=== PATIENT | male | born 1980 | race Caucasian/White ===

== ENCOUNTER 2018-10-04 05:27 | Inpatient (IN) ==
--- NOTE | 2018-09-27 08:33 | EKG Report ---
Test Performed on : 09/27/2018 08:22:26 AM Test Reason : PAT Blood Pressure : / mmHG Vent. Rate : 062 BPM Atrial Rate : 062 BPM P-R Int : 172 ms QRS Dur : 096 ms QT Int : 368 ms P-R-T Axes : 011 029 038 degrees QTc Int : 373 ms Normal sinus rhythm. with sinus arrhythmia. Normal ECG No previous ECGs available Confirmed by Renard VAZQUEZ, Atul Wallace ([id number]) on 09/28/2018 8:46:14 AM
[2018-09-27 08:43] LABS: URINE SOURCE CLEAN CATCH
[2018-09-27 09:35] LABS: BASO# 0.04 X1000 (0.0-0.2); BASO% 0.6 % (0.0-0.8); EOS# 0.24 X1000 (0.0-0.7); EOS% 3.7 % (0.0-10.0); HEMATOCRIT 48.6 % (42.0-52.0); HEMOGLOBIN 16.8 g/dL (14.0-18.0); LYMPH% 35.8 % (20.5-51.1); MCH 30.1 PG (27-31); MCHC 34.6 g/dL (33-37); MCV 87.1 FL (81-99); MONO# 0.49 X1000 (0.11-0.59); MONO% 7.6 % (1.7-9.3); MPV 9.7 FL (7.4-10.4); NEUT# 3.36 X1000 (1.4-6.5); NEUT% 52.3 % (42.2-75.2); PLT 239 X1000 (130-400); RBC 5.58 XMIL (4.7-6.1); RDW 12.7 % (11.5-14.5); WBC 6.43 X1000 (4.8-10.8)
[2018-09-27 09:45] LABS: BILIRUBIN URINE NEGATIVE (NEGATIVE); BLOOD URINE NEGATIVE (NEGATIVE); COLOR YELLOW; GLUCOSE URINE NEGATIVE (NEGATIVE); KETONE URINE NEGATIVE (NEGATIVE); LEUKOCYTES URINE NEGATIVE (NEGATIVE); NITRITE URINE NEGATIVE (NEGATIVE); PH URINE 6.5; PROTEIN URINE NEGATIVE (NEGATIVE); SP GRAVITY URINE 1.015; TURBIDITY URINE CLEAR (CLEAR); UROBILINOGEN URINE NORMAL (NORMAL)
[2018-09-27 09:50] LABS: UR EPITHELIAL CELLS <10 /HPF (<10); URINE BACTERIA NEGATIVE /HPF; URINE RBC <10 /HPF (<10); URINE WBC <10 /HPF (<10)
[2018-09-27 09:59] LABS: INR 0.88; PROTIME 12.7 Seconds (11.0-16.0)
[2018-09-27 11:07] LABS: AGAP 13; BUN 12 mg/dL (8-22); CALCIUM 9.2 mg/dL (8.8-10.2); CHLORIDE 102 mmol/L (98-107); COSMO 279; CREATININE 0.9 mg/dL (0.7-1.2); ESTIMATED GFR > 60; GLUCOSE 123 mg/dL (70-104); POTASSIUM 4.3 mmol/L (3.5-5.1); SODIUM 139 mmol/L (136-145); TCO2 24 mmol/L (25-35)
[2018-10-04] MEDS ORDERED: KEFZOL 1 GM/D5W 2 GM/100 ML IVPB ONE (05:57)
[2018-10-04] MEDS ORDERED: VALIUM ONE (05:57)
[2018-10-04] MEDS ORDERED: PEPCID ONE (05:57)
[2018-10-04] MEDS ORDERED: LR 1,000 ML ONE (05:57)
[2018-10-04] MEDS ORDERED: COLACE ONE (05:58)
[2018-10-04] MEDS ORDERED: REGLAN ONE (05:59)
[2018-10-04] MEDS ORDERED: CELEBREX ONE (05:59)
[2018-10-04] MEDS ORDERED: LYRICA ONE (05:59)
[2018-10-04] MEDS ORDERED: DIPRIVAN 1% ONE (06:29)
[2018-10-04] MEDS ORDERED: SODIUM CHLORIDE 0.9% 20 ML ONE (06:30)
[2018-10-04] MEDS ORDERED: NEO-SYNEPHRINE ONE (06:30)
[2018-10-04] MEDS ORDERED: NORCURON ONE (06:30)
[2018-10-04] MEDS ORDERED: XYLOCAINE-MPF 2% ONE (06:30)
[2018-10-04] MEDS ORDERED: FENTANYL ONE (06:33)
[2018-10-04] MEDS ORDERED: VERSED ONE (06:40)
[2018-10-04] MEDS ORDERED: CYKLOKAPRON 1,000 MG/NS 1,000 MG/100 ML IVPB ONE (07:49)
[2018-10-04] MEDS ORDERED: SODIUM CHLORIDE 0.9% ONE (07:49)
[2018-10-04] MEDS ORDERED: DURAMORPH ONE (07:49)
[2018-10-04] MEDS ORDERED: MARCAINE 0.25% PF ONE (07:49)
[2018-10-04] MEDS ORDERED: TORADOL ONE (07:49)
[2018-10-04] MEDS ORDERED: EXPAREL 1.3% ONE (07:50)
[2018-10-04] MEDS ORDERED: NEOSPORIN G.U. IRRIGANT ONE (07:50)
[2018-10-04] MEDS ORDERED: PRECEDEX ONE (07:52)
[2018-10-04] MEDS ORDERED: ROBINUL ONE (08:49)
[2018-10-04] MEDS ORDERED: NEOSTIGMINE ONE (08:49)
[2018-10-04] MEDS ORDERED: APRESOLINE ONE (09:19)
--- NOTE | 2018-10-04 10:29 | OPERATIVE NOTE ---
PROCEDURE DATE: 10/04/2018 PREOPERATIVE DIAGNOSIS: Left posttraumatic glenohumeral arthritis. POSTOPERATIVE DIAGNOSIS: Left posttraumatic glenohumeral arthritis. PROCEDURE: Resurfacing arthroplasty left humeral head with a Global cap size 56 x 21. SURGEON: Ranulfo Curtis MD. CADMIUM PLATER: ZEINA Pennington. 2ND ELECTRICAL INSTALLER: Sharan Jean RN. ANESTHESIA: General. IV FLUIDS: 900 mL lactated Ringer's. ESTIMATED BLOOD LOSS: 100 mL. COMPLICATIONS: None. INDICATION: The patient is a pleasant 38-year-old male who is status post injury to his left shoulder while serving in [place] in 2003, sustained an IED injury. He has had a chronic history of pain and discomfort to his left shoulder. He did undergo a cadaveric bone graft of the humeral head [place] [address] Ring. He developed some increasing discomfort over the years. X-rays revealed posttraumatic arthritis and evidence of degenerative changes in the humeral head as well. Given patient's findings, recommendation to proceed with arthroplasty of the left shoulder was offered. The risks and benefits of surgery were explained, including the risks of anesthesia, , bleeding, infection, failure to relieve pain, postoperative stiffness, nerve injury, blood clots, and other imponderables. All questions were answered. The patient and family wished to proceed with surgery. DETAILS OF OPERATION: The patient was taken to the operating room, placed supinely on the operating table. Once adequate anesthesia was obtained, the patient was placed in semi-Bill beach-chair position. The left shoulder was subsequently prepped and draped in usual sterile fashion. A standard deltopectoral incision was made through the previous surgical incision. The incision was carried down through subcutaneous tissue. Retractors were then placed. The clavipectoral fascia was elevated as well. Approximately 1 cm medial to the subscapularis tendon insertion, it was released. It was then dislocated anteriorly. The patient did have an inferior osteophyte. It had chronic deformity to the superior portion of the humeral head and evidence of degenerative arthritic changes. After this had been performed, after removing the inferior osteophyte, the guide was then placed on the humeral head. The guide pin was then placed. Reaming of the humeral head was then conducted. It appeared size 56 was the correct size. After adequate reaming had been conducted, the peripheral bone was removed with a rongeur. The humeral head was then copiously irrigated. A 56 x 21 humeral cup was then impacted on the head after removing the guide pin. It had excellent purchase and had good fit. A rongeur was used to remove some of the peripheral bone. The wound was copiously irrigated. The shoulder was reduced, carried through range of motion. It had good range of motion and good stability. Exparel was placed in deep soft tissue. A #2 FiberWire was used to repair the subscapularis tendon. Number 1 Vicryl was used to repair the rotator cuff interval. There appeared be good repair. The remaining portion of Exparel was placed in deep soft tissue, as well as the subcutaneous tissue. The wound was copiously irrigated once again with antibiotic pulsatile lavage. 2-0 Vicryl was then used to repair the subcutaneous tissue, followed by running 2-0 Prolene. Benzoin and Steri-Strips were applied. Adaptic, sterile 4 x 4, ABD pad, and tape was applied to the left shoulder, followed by a shoulder immobilizer. All counts were correct. The patient tolerated the procedure well and was transferred to the recovery room in stable condition. cc: Ranulfo Curtis MD
[2018-10-04] MEDS ORDERED: NS 1,000 ML ONE (10:35)
[2018-10-04] MEDS: DILAUDID ONE ×2 (10:38→10:47)
--- NOTE | 2018-10-04 10:44 | Diag Imaging Result Doc PS360 ---
EXAM: SHOULDER-LEFT HISTORY: post op TECHNIQUE: Left shoulder single view COMPARISON: None. FINDINGS: No fracture. No dislocation. No separation at the acromioclavicular joint. Orthopedic hardware in the humeral head. IMPRESSION: No acute abnormality. Electronically signed by Kingsley Troncoso 10/04/2018 10:42 AM
[2018-10-04] MEDS ORDERED: OXY IR ONE (10:56)
[2018-10-04] MEDS ORDERED: MORPHINE IV PRN ×3 (12:00)
[2018-10-04] MEDS ORDERED: OXY IR PO PRN (12:00)
[2018-10-04] MEDS ORDERED: ZOFRAN PO PRN (12:00)
[2018-10-04] MEDS: NS 1,000 ML IV SCH (13:41)
[2018-10-04] MEDS ORDERED: CYKLOKAPRON 1,000 MG in NS 100 ML IV ONE (14:30)
[2018-10-04] MEDS: OXY IR PO PRN ×2 (15:39→21:42)
[2018-10-04] MEDS: KEFZOL 2 GM/D5W 2 GM/50 ML IVPB IV SCH (16:21)
[2018-10-05] MEDS: OXY IR PO PRN ×4 (00:37→09:10)
[2018-10-05] MEDS: NS 1,000 ML IV SCH (00:41)
[2018-10-05] MEDS: KEFZOL 2 GM/D5W 2 GM/50 ML IVPB IV SCH (00:44)
[2018-10-05 06:23] LABS: HEMATOCRIT 41.5 % (42.0-52.0); HEMOGLOBIN 14.2 g/dL (14.0-18.0)
[2018-10-05 06:44] LABS: AGAP 10; BUN 14 mg/dL (8-22); CALCIUM 8.8 mg/dL (8.8-10.2); CHLORIDE 103 mmol/L (98-107); COSMO 281; ESTIMATED GFR > 60; GLUCOSE 118 mg/dL (70-104); POTASSIUM 4.4 mmol/L (3.5-5.1); SODIUM 140 mmol/L (136-145); TCO2 27 mmol/L (25-35)
[2018-10-05 07:59] VITALS: BP 136/97
--- NOTE | 2018-10-05 08:54 | ORTHOPAEDICS PROGRESS NOTE ---
DATE: 10/05/2018 SUBJECTIVE: The patient is a pleasant, 38-year-old male, who is 1 day status post resurfacing arthroplasty of the left humeral head. He is currently resting comfortably. PHYSICAL EXAMINATION: His left upper extremity dressing is intact and shoulder immobilizer is in place. He is neurovascularly distally. Able flex all of his fingers. Good residential support worker strength. His labs are pending. IMPRESSION: Status post resurfacing arthroplasty left humeral head. PLAN: At this point, will change his dressing, and plan on discharging home. We will arrange for outpatient physical therapy. I will see the patient back on 10/16/2018. cc: Ranulfo Curtis MD
[2018-10-05] MEDS ORDERED: PAXIL PO SCH (09:00)
[2018-10-05] MEDS ORDERED: PERIDEX MT SCH (09:00)
[2018-10-05] MEDS ORDERED: PRILOSEC PO SCH (09:00)
== END 2018-10-05 09:53 | disposition home or self-care (01) | DRG 483 ==
LOC: SURHOLD 05:27 → 4N 08:07
PROVIDERS: ADMIT Orthopaedic Surgery Adult Reconstructive Orthopaedic Surgery; ATTEND Orthopaedic Surgery Adult Reconstructive Orthopaedic Surgery
CPT/HCPCS: 73030; 80048; 81001; 85014; 85018; 85025; 85610; 85730; 86850; 86900; 86901; 93005; 93010; 94761; 94799; A9270; C9290; J0360; J0690; J1170; J1885; J2250; J2270; J2274; J2275; J2370; J3010; J7030; J7120; Q9974; S0020